=== PATIENT | male | born 1945 | race Caucasian/White ===

== ENCOUNTER 2017-05-23 10:16 | Inpatient (IN) | payer OTHER, MEDICARE ==
[~2017-05-23] VITALS: Ht 180.3 cm; Wt 108.4 kg
[2017-05-23 10:40] LABS: BASOPHILS % (AUTO) 1.8 % (0.0-5.0); EOSINOPHILS % (AUTO) 2.6 % (0.0-8.0); HEMATOCRIT 45.5 % (42-54); LYMPHOCYTES % (AUTO) 11.1 % (21.0-51.0); MEAN CORPUSCULAR HEMOGLOBIN 29.9 pg (27.0-33.0); MEAN CORPUSCULAR VOLUME 90.6 fL (79-99); MONOCYTES % (AUTO) 4.9 % (3.0-13.0); NEUTROPHILS % (AUTO) 79.6 % (40.0-77.0); PLATELET COUNT (AUTO) 348 K/uL (130-400); RED BLOOD CELL COUNT(AUTO) 5.02 MIL/uL (4.50-6.20); WHITE BLOOD COUNT (AUTO) 9.6 K/uL (4.8-10.8)
[2017-05-23 10:49] LABS: ALBUMIN 3.4 g/dL (3.5-5.0); BILIRUBIN,TOTAL 0.5 mg/dL (0.2-1.0); CREATININE 0.9 mg/dL (0.5-1.5); POTASSIUM 4.5 mmol/L (3.5-5.1); TOTAL PROTEIN, SERUM 7.5 g/dL (6.0-8.3)
[2017-05-23] MEDS ORDERED: SODIUM CHLORIDE 0.9% 1000ML 1,000 ML IV ONE (11:41)
[2017-05-23] MEDS ORDERED: CEFAZOLIN SODIUM 1 GM VIAL ONE (11:42)
[2017-05-23] MEDS ORDERED: INSULIN HUMULIN R 100 UNIT/ML 3ML ONE (11:43)
[2017-05-23 11:50] LABS: ERYTHROCYTE SEDIMENTATION RATE 33 MM/HR (0-15)
[2017-05-23] MEDS: SODIUM CHLORIDE 0.9% 1000ML 1,000 ML IV SCH (13:35)
[2017-05-23] MEDS ORDERED: POTASSIUM CHLORIDE 20MEQ/100ML 100 ML IV PRN (13:45)
[2017-05-23] MEDS ORDERED: NITROGLYCERIN 0.4 MG SL TAB SL PRN (13:45)
[2017-05-23] MEDS ORDERED: ACETAMINOPHEN 325 MG TAB PO PRN ×2 (13:45)
[2017-05-23] MEDS ORDERED: MORPHINE SULFATE 2 MG/ML 1ML SYG IV PRN (13:45)
[2017-05-23] MEDS ORDERED: GUAIFENESIN-DM 200/20 MG 10 ML PO PRN (13:45)
[2017-05-23] MEDS ORDERED: VANCOMYCIN 1GM+NS 250ML 250 ML IV SCH (13:45)
[2017-05-23] MEDS ORDERED: POTASSIUM CHLORIDE 20 MEQ ERTAB PO PRN (13:45)
[2017-05-23] MEDS ORDERED: MORPHINE SULFATE 4 MG/1ML SYG IV PRN (13:45)
[2017-05-23] MEDS ORDERED: CEFTRIAXONE 1GM/D5W 50ML 50 ML IV SCH (13:45)
[2017-05-23] MEDS ORDERED: LIDOCAINE HCL-MPF 1% 2ML VIAL IVP PRN (13:45)
[2017-05-23] MEDS ORDERED: ACETAMINOPHEN-CODEINE 300/30MG TAB PO PRN (13:45)
[2017-05-23] MEDS ORDERED: VANCOMYCIN PROTOCOL PER PHARMACY IV PRN (13:45)
[2017-05-23] MEDS ORDERED: ONDANSETRON HCL 4 MG/2 ML VIAL IV PRN (13:45)
[2017-05-23] MEDS ORDERED: POTASSIUM CHLORIDE 10% ELIXIR 20 MEQ/15 ML UDCUP PO PRN (13:45)
[2017-05-23] MEDS ORDERED: FAMOTIDINE 20MG TAB 20 MG TAB ONE (13:48)
[2017-05-23] MEDS ORDERED: VANCOMYCIN 1GM+NS 250ML 250 ML IV ONE (13:48)
[2017-05-23 16:29] VITALS: BP 157/97
[2017-05-23] MEDS ORDERED: COMPOUND IV REFRIGERATED 1 EACH IVSOLN MISC PRN (16:45)
[2017-05-23] MEDS: CEFTRIAXONE SODIUM 1 GM IVP SCH (17:21)
[2017-05-23] MEDS: WATER FOR INJECTION,STERILE 5 ML VIAL INJ SCH (17:21)
[2017-05-23] MEDS: HYDRALAZINE HCL 20 MG/ML VIAL IV PRN (17:22)
[2017-05-23] MEDS: INSULIN HUMULIN R 100 UNIT/ML 3ML SQ SCH ×2 (17:23→22:57)
[2017-05-23 19:00] VITALS: BP 145/88
[2017-05-23] MEDS: ACETAMINOPHEN-CODEINE 300/30MG TAB PO PRN (20:04)
[2017-05-23] MEDS ORDERED: PNEUMOCOCCAL VACCINE POLYVALENT 0.5 ML/VIAL [PPV] IM SCH (20:15)
[2017-05-23] MEDS: FAMOTIDINE 20MG TAB 20 MG TAB PO SCH (21:51)
[2017-05-23] MEDS: DEXTROSE 5% IV SCH (21:56)
[2017-05-23] MEDS: VANCOMYCIN IV SCH (21:56)
[2017-05-23] MEDS: WATER IV SCH (21:56)
[2017-05-23] MEDS ORDERED: DEXTROSE 50%-WATER 50 ML DISP.SYRIN IV PRN (22:00)
[2017-05-23] MEDS ORDERED: GLUCAGON 1MG KIT 1 MG ML IM PRN (22:00)
[2017-05-23 23:00] VITALS: BP 160/95
[2017-05-24] VITALS (7 sets, daily range): BP systolic 140–176; BP diastolic 80–104
[2017-05-24] MEDS: SODIUM CHLORIDE 0.9% 1000ML 1,000 ML IV SCH (00:18)
[2017-05-24 05:48] LABS: HEMOGLOBIN A1C 8.1 % (4.0-6.0)
[2017-05-24 06:00] LABS: CREATININE 0.8 mg/dL (0.5-1.5); POTASSIUM 4.3 mmol/L (3.5-5.1); THYROID STIMULATING HORMONE 2.01 uIU/mL (0.36-3.74)
[2017-05-24] MEDS: INSULIN HUMULIN R 100 UNIT/ML 3ML SQ SCH ×4 (07:01→22:35)
[2017-05-24] MEDS ORDERED: INSULIN DETEMIR 10ML 100 UNIT/ML 10ML SQ SCH (07:30)
[2017-05-24] MEDS ORDERED: OLME20TA10 PO (08:05)
[2017-05-24] MEDS ORDERED: METF-527 PO (08:05)
[2017-05-24] MEDS ORDERED: ROSU20TA PO (08:05)
[2017-05-24] MEDS ORDERED: ASPI-1012 PO (08:05)
[2017-05-24] MEDS ORDERED: METO-409 PO (08:05)
[2017-05-24] MEDS ORDERED: CITA40TA6 PO (08:05)
[2017-05-24] MEDS ORDERED: GLIM4TAB3 PO (08:05)
[2017-05-24] MEDS ORDERED: ESOM40CA PO (08:05)
[2017-05-24] MEDS: VANCOMYCIN IV SCH ×2 (08:14→20:34)
[2017-05-24] MEDS: DEXTROSE 5% IV SCH ×2 (08:14→20:34)
[2017-05-24] MEDS: WATER IV SCH ×2 (08:14→20:34)
[2017-05-24] MEDS: FAMOTIDINE 20MG TAB 20 MG TAB PO SCH ×2 (08:16→20:33)
[2017-05-24] MEDS: HYDRALAZINE HCL 20 MG/ML VIAL IV PRN (11:33)
[2017-05-24] MEDS: CEFTRIAXONE SODIUM 1 GM IVP SCH (15:57)
[2017-05-24] MEDS: WATER FOR INJECTION,STERILE 5 ML VIAL INJ SCH (15:58)
[2017-05-24] MEDS: LACTULOSE 20 GM/30 ML UDCUP PO PRN (15:58)
[2017-05-24] MEDS: GLIMEPIRIDE 2 MG TABLET PO SCH (20:33)
[2017-05-24] MEDS: METFORMIN HCL 500 MG TAB.SR.24H PO SCH (20:33)
[2017-05-24] MEDS: LOSARTAN 100 MG TABLET PO SCH (20:33)
[2017-05-24] MEDS: ATORVASTATIN CALCIUM 40 MG TABLET PO SCH (20:33)
[2017-05-24] MEDS: METOPROLOL TARTRATE 50 MG TAB PO SCH (20:33)
[2017-05-25] VITALS (7 sets, daily range): BP systolic 120–166; BP diastolic 61–101
[2017-05-25] MEDS: HYDRALAZINE HCL 20 MG/ML VIAL IV PRN (04:07)
[2017-05-25] MEDS: ACETAMINOPHEN-CODEINE 300/30MG TAB PO PRN ×3 (04:10→22:50)
[2017-05-25] MEDS: INSULIN HUMULIN R 100 UNIT/ML 3ML SQ SCH ×4 (05:56→21:38)
[2017-05-25] MEDS ORDERED: INSULIN GLARGINE 100 UNITS/ML 10 ML VIAL SQ ONE (06:31)
[2017-05-25] MEDS: INSULIN GLARGINE 100 UNITS/ML 10 ML VIAL SQ SCH (06:37)
[2017-05-25] MEDS: ASPIRIN 325 MG TABLET PO SCH (09:06)
[2017-05-25] MEDS: FAMOTIDINE 20MG TAB 20 MG TAB PO SCH ×2 (09:07→19:45)
[2017-05-25] MEDS: CITALOPRAM 20 MG TABLET PO SCH (09:07)
[2017-05-25] MEDS: METFORMIN HCL 500 MG TAB.SR.24H PO SCH ×2 (09:07→19:44)
[2017-05-25] MEDS: METOPROLOL TARTRATE 50 MG TAB PO SCH ×2 (09:07→19:45)
[2017-05-25] MEDS: GLIMEPIRIDE 2 MG TABLET PO SCH ×2 (09:07→19:44)
[2017-05-25] MEDS: VANCOMYCIN IV SCH ×2 (10:36→19:44)
[2017-05-25] MEDS: DEXTROSE 5% IV SCH ×2 (10:36→19:44)
[2017-05-25] MEDS: WATER IV SCH ×2 (10:36→19:44)
[2017-05-25] MEDS: CEFTRIAXONE SODIUM 1 GM IVP SCH (17:09)
[2017-05-25] MEDS: WATER FOR INJECTION,STERILE 5 ML VIAL INJ SCH (17:19)
[2017-05-25] MEDS: ATORVASTATIN CALCIUM 40 MG TABLET PO SCH (19:44)
[2017-05-25] MEDS: LOSARTAN 100 MG TABLET PO SCH (19:45)
[2017-05-26 03:10] VITALS: BP 128/78
[2017-05-26 06:22] LABS: HEMATOCRIT 41.4 % (42-54); MEAN CORPUSCULAR HEMOGLOBIN 30.3 pg (27.0-33.0); MEAN CORPUSCULAR VOLUME 89.2 fL (79-99); PLATELET COUNT (AUTO) 326 K/uL (130-400); RED BLOOD CELL COUNT(AUTO) 4.64 MIL/uL (4.50-6.20); RED CELL DISTRIBUTION WIDTH 13.9 % (11.0-15.5); WHITE BLOOD COUNT (AUTO) 8.3 K/uL (4.8-10.8)
[2017-05-26 06:27] LABS: CREATININE 0.7 mg/dL (0.5-1.5); POTASSIUM 4.2 mmol/L (3.5-5.1)
[2017-05-26] MEDS: INSULIN HUMULIN R 100 UNIT/ML 3ML SQ SCH ×4 (06:33→19:45)
[2017-05-26] MEDS ORDERED: INSULIN GLARGINE 100 UNITS/ML 10 ML VIAL SQ ONE (06:36)
[2017-05-26] MEDS: INSULIN GLARGINE 100 UNITS/ML 10 ML VIAL SQ SCH (06:38)
[2017-05-26 08:00] VITALS: BP 155/75
[2017-05-26] MEDS: METOPROLOL TARTRATE 50 MG TAB PO SCH ×2 (08:34→19:36)
[2017-05-26] MEDS: CITALOPRAM 20 MG TABLET PO SCH (08:35)
[2017-05-26] MEDS: METFORMIN HCL 500 MG TAB.SR.24H PO SCH ×2 (08:35→19:37)
[2017-05-26] MEDS: GLIMEPIRIDE 2 MG TABLET PO SCH ×2 (08:35→19:36)
[2017-05-26] MEDS: FAMOTIDINE 20MG TAB 20 MG TAB PO SCH ×2 (08:35→19:36)
[2017-05-26] MEDS: ACETAMINOPHEN-CODEINE 300/30MG TAB PO PRN ×2 (08:37→19:40)
[2017-05-26] MEDS: ASPIRIN 325 MG TABLET PO SCH (08:38)
[2017-05-26] MEDS: ENOXAPARIN SODIUM 40 MG/0.4 ML SYRINGE SQ SCH (08:38)
[2017-05-26 11:00] VITALS: BP 158/92
[2017-05-26] MEDS: WATER IV SCH ×2 (12:20→21:19)
[2017-05-26] MEDS: DEXTROSE 5% IV SCH ×2 (12:20→21:19)
[2017-05-26] MEDS: VANCOMYCIN IV SCH ×2 (12:20→21:19)
[2017-05-26 16:00] VITALS: BP 154/90
[2017-05-26] MEDS: CEFTRIAXONE SODIUM 1 GM IVP SCH (18:28)
[2017-05-26] MEDS: WATER FOR INJECTION,STERILE 5 ML VIAL INJ SCH (18:28)
[2017-05-26 19:00] VITALS: BP 141/83
[2017-05-26] MEDS: LOSARTAN 100 MG TABLET PO SCH (19:36)
[2017-05-26] MEDS: ATORVASTATIN CALCIUM 40 MG TABLET PO SCH (19:36)
[2017-05-26 23:00] VITALS: BP_SYST 165; BP_SYST 173; BP_DIAS 105; BP_DIAS 99
[2017-05-26] MEDS: HYDRALAZINE HCL 20 MG/ML VIAL IV PRN (23:58)
[2017-05-27] VITALS (25 sets, daily range): BP systolic 68–187; BP diastolic 33–102
[2017-05-27 04:05] LABS: HEMATOCRIT 45.8 % (42-54); MEAN CORPUSCULAR HGB CONC 32.8 g/dL (32.0-36.0); MEAN CORPUSCULAR VOLUME 91.4 fL (79-99); NUCLEATED RED BLOOD CELLS 0.1 % (0.0-0.19); PLATELET COUNT (AUTO) 403 K/uL (130-400); RED BLOOD CELL COUNT(AUTO) 5.02 MIL/uL (4.50-6.20); RED CELL DISTRIBUTION WIDTH 13.6 % (11.0-15.5); WHITE BLOOD COUNT (AUTO) 8.9 K/uL (4.8-10.8)
[2017-05-27 04:15] LABS: POTASSIUM 4.3 mmol/L (3.5-5.1)
[2017-05-27] MEDS: INSULIN HUMULIN R 100 UNIT/ML 3ML SQ SCH ×4 (06:53→21:00)
[2017-05-27] MEDS: INSULIN GLARGINE 100 UNITS/ML 10 ML VIAL SQ SCH (06:53)
[2017-05-27] MEDS: METOPROLOL TARTRATE 50 MG TAB PO SCH ×2 (08:31→21:33)
[2017-05-27] MEDS: DEXTROSE 5% IV SCH ×2 (08:41→21:43)
[2017-05-27] MEDS: WATER IV SCH ×2 (08:41→21:43)
[2017-05-27] MEDS: VANCOMYCIN IV SCH ×2 (08:41→21:43)
[2017-05-27] MEDS: CITALOPRAM 20 MG TABLET PO SCH (09:00)
[2017-05-27] MEDS: GLIMEPIRIDE 2 MG TABLET PO SCH ×2 (09:00→21:33)
[2017-05-27] MEDS: ASPIRIN 325 MG TABLET PO SCH (09:00)
[2017-05-27] MEDS: FAMOTIDINE 20MG TAB 20 MG TAB PO SCH ×2 (09:00→21:33)
[2017-05-27] MEDS: ENOXAPARIN SODIUM 40 MG/0.4 ML SYRINGE SQ SCH (09:00)
[2017-05-27] MEDS: METFORMIN HCL 500 MG TAB.SR.24H PO SCH ×2 (09:00→21:33)
[2017-05-27] MEDS: SODIUM CHLORIDE 0.9% 1000ML 1,000 ML IV SCH ×3 (09:38→21:00)
[2017-05-27] MEDS ORDERED: VANCOMYCIN HCL 1 GM VIAL ONE (10:24)
[2017-05-27] MEDS ORDERED: DEXAMETHASONE SOD PHOSPHATE 10MG/ML 1ML VIAL ONE (13:33)
[2017-05-27] MEDS ORDERED: GLYCOPYRROLATE 0.2 MG/ML 5 ML VIAL ONE (13:33)
[2017-05-27] MEDS ORDERED: ONDANSETRON HCL 4 MG/2 ML VIAL ONE (13:33)
[2017-05-27] MEDS ORDERED: LIDOCAINE PF 2% 5ML ABBOJECT ONE (13:33)
[2017-05-27] MEDS ORDERED: PROPOFOL 10 MG/ML 20ML VIAL IV ONE (13:34)
[2017-05-27] MEDS ORDERED: MIDAZOLAM HCL 1 MG/ML 2ML VIAL ONE (13:34)
[2017-05-27] MEDS ORDERED: FENTANYL CITRATE PF 50 MCG/1 ML 2ML VIAL ONE (13:34)
[2017-05-27] MEDS ORDERED: DIPHENHYDRAMINE HCL 25 MG CAPSULE PO PRN (15:00)
[2017-05-27] MEDS ORDERED: POTASSIUM CHLORIDE 20MEQ/100ML 100 ML IV PRN (15:00)
[2017-05-27] MEDS ORDERED: DiphenhydrAMINE HCL 50 MG/ML VIAL IVP PRN (15:00)
[2017-05-27] MEDS: CEFTRIAXONE SODIUM 1 GM IVP SCH (17:05)
[2017-05-27] MEDS: WATER FOR INJECTION,STERILE 5 ML VIAL INJ SCH (17:06)
[2017-05-27] MEDS: ACETAMINOPHEN-CODEINE 300/30MG TAB PO PRN (17:55)
[2017-05-27] MEDS: HYDRALAZINE HCL 20 MG/ML VIAL IV PRN (17:59)
[2017-05-27] MEDS: LOSARTAN 100 MG TABLET PO SCH (21:33)
[2017-05-27] MEDS: ATORVASTATIN CALCIUM 40 MG TABLET PO SCH (21:33)
[2017-05-27] MEDS: MAG HYDROX/AL HYDROX/SIMETH ES 30 ML SUSP UDCUP PO PRN (21:33)
[2017-05-28] VITALS: BP 140/81
[2017-05-28] MEDS: SODIUM CHLORIDE 0.9% 1000ML 1,000 ML IV SCH ×3 (00:46→10:46)
[2017-05-28 03:53] VITALS: BP 134/75
[2017-05-28 04:15] LABS: HEMATOCRIT 40.7 % (42-54); MEAN CORPUSCULAR HEMOGLOBIN 30.3 pg (27.0-33.0); MEAN CORPUSCULAR HGB CONC 33.8 g/dL (32.0-36.0); MEAN CORPUSCULAR VOLUME 89.8 fL (79-99); PLATELET COUNT (AUTO) 342 K/uL (130-400); RED BLOOD CELL COUNT(AUTO) 4.54 MIL/uL (4.50-6.20); RED CELL DISTRIBUTION WIDTH 13.4 % (11.0-15.5); WHITE BLOOD COUNT (AUTO) 8.4 K/uL (4.8-10.8)
[2017-05-28 04:29] LABS: CREATININE 0.8 mg/dL (0.5-1.5); POTASSIUM 4.4 mmol/L (3.5-5.1)
[2017-05-28] MEDS: INSULIN GLARGINE 100 UNITS/ML 10 ML VIAL SQ SCH (07:03)
[2017-05-28] MEDS: INSULIN HUMULIN R 100 UNIT/ML 3ML SQ SCH ×4 (07:04→22:15)
[2017-05-28 08:00] VITALS: BP 121/76
[2017-05-28] MEDS: METOPROLOL TARTRATE 50 MG TAB PO SCH ×2 (08:41→21:57)
[2017-05-28] MEDS: ASPIRIN 325 MG TABLET PO SCH (08:41)
[2017-05-28] MEDS: FAMOTIDINE 20MG TAB 20 MG TAB PO SCH ×2 (08:41→21:56)
[2017-05-28] MEDS: CITALOPRAM 20 MG TABLET PO SCH (08:42)
[2017-05-28] MEDS: METFORMIN HCL 500 MG TAB.SR.24H PO SCH ×2 (08:42→21:57)
[2017-05-28] MEDS: GLIMEPIRIDE 2 MG TABLET PO SCH ×2 (08:42→21:57)
[2017-05-28] MEDS: VANCOMYCIN IV SCH ×2 (08:51→22:08)
[2017-05-28] MEDS: WATER IV SCH ×2 (08:51→22:08)
[2017-05-28] MEDS: DEXTROSE 5% IV SCH ×2 (08:51→22:08)
[2017-05-28 12:08] VITALS: BP 156/90
[2017-05-28 16:00] VITALS: BP 135/95
[2017-05-28] MEDS: CEFTRIAXONE SODIUM 1 GM IVP SCH (16:47)
[2017-05-28] MEDS: WATER FOR INJECTION,STERILE 5 ML VIAL INJ SCH (16:48)
[2017-05-28] MEDS: LACTULOSE 20 GM/30 ML UDCUP PO PRN (18:31)
[2017-05-28 20:00] VITALS: BP 157/90
[2017-05-28] MEDS: MAG HYDROX/AL HYDROX/SIMETH ES 30 ML SUSP UDCUP PO PRN (21:55)
[2017-05-28] MEDS: LOSARTAN 100 MG TABLET PO SCH (21:56)
[2017-05-28] MEDS: ATORVASTATIN CALCIUM 40 MG TABLET PO SCH (21:56)
[2017-05-29] VITALS: BP 171/94
[2017-05-29 04:00] VITALS: BP 150/83
[2017-05-29 04:32] LABS: HEMATOCRIT 40.1 % (42-54); MEAN CORPUSCULAR HEMOGLOBIN 30.5 pg (27.0-33.0); MEAN CORPUSCULAR VOLUME 89.6 fL (79-99); PLATELET COUNT (AUTO) 342 K/uL (130-400); RED BLOOD CELL COUNT(AUTO) 4.47 MIL/uL (4.50-6.20); RED CELL DISTRIBUTION WIDTH 13.5 % (11.0-15.5); WHITE BLOOD COUNT (AUTO) 7.5 K/uL (4.8-10.8)
[2017-05-29] MEDS: INSULIN HUMULIN R 100 UNIT/ML 3ML SQ SCH ×4 (06:10→21:42)
[2017-05-29] MEDS: INSULIN GLARGINE 100 UNITS/ML 10 ML VIAL SQ SCH (06:16)
[2017-05-29 07:30] VITALS: BP 171/97
[2017-05-29] MEDS: METFORMIN HCL 500 MG TAB.SR.24H PO SCH ×2 (09:50→21:33)
[2017-05-29] MEDS: METOPROLOL TARTRATE 50 MG TAB PO SCH ×2 (09:51→21:34)
[2017-05-29] MEDS: CITALOPRAM 20 MG TABLET PO SCH (09:51)
[2017-05-29] MEDS: GLIMEPIRIDE 2 MG TABLET PO SCH ×2 (09:51→21:34)
[2017-05-29] MEDS: ASPIRIN 325 MG TABLET PO SCH (09:51)
[2017-05-29] MEDS: FAMOTIDINE 20MG TAB 20 MG TAB PO SCH ×2 (09:51→21:34)
[2017-05-29] MEDS: LACTULOSE 20 GM/30 ML UDCUP PO PRN (09:57)
[2017-05-29] MEDS ORDERED: AMOX-429 PO (09:58)
[2017-05-29] MEDS: VANCOMYCIN IV SCH ×2 (10:37→21:33)
[2017-05-29] MEDS: DEXTROSE 5% IV SCH ×2 (10:37→21:33)
[2017-05-29] MEDS: WATER IV SCH ×2 (10:37→21:33)
[2017-05-29 11:00] VITALS: BP 144/85
[2017-05-29 16:00] VITALS: BP 154/98
[2017-05-29] MEDS: CEFTRIAXONE SODIUM 1 GM IVP SCH (17:42)
[2017-05-29] MEDS: WATER FOR INJECTION,STERILE 5 ML VIAL INJ SCH (17:44)
[2017-05-29 19:30] VITALS: BP 137/85
[2017-05-29] MEDS: LOSARTAN 100 MG TABLET PO SCH (21:34)
[2017-05-29] MEDS: ATORVASTATIN CALCIUM 40 MG TABLET PO SCH (21:34)
[2017-05-30 00:16] VITALS: BP 160/98
[2017-05-30 04:00] VITALS: BP 133/77
[2017-05-30] MEDS: INSULIN HUMULIN R 100 UNIT/ML 3ML SQ SCH ×2 (06:40→11:21)
[2017-05-30] MEDS: INSULIN GLARGINE 100 UNITS/ML 10 ML VIAL SQ SCH (06:46)
[2017-05-30 07:00] VITALS: BP 143/95
[2017-05-30] MEDS ORDERED: DOXY100T2 PO (09:14)
[2017-05-30] MEDS: ASPIRIN 325 MG TABLET PO SCH (09:55)
[2017-05-30] MEDS: CITALOPRAM 20 MG TABLET PO SCH (09:55)
[2017-05-30] MEDS: FAMOTIDINE 20MG TAB 20 MG TAB PO SCH (09:55)
[2017-05-30] MEDS: METFORMIN HCL 500 MG TAB.SR.24H PO SCH (09:55)
[2017-05-30] MEDS: METOPROLOL TARTRATE 50 MG TAB PO SCH (09:55)
[2017-05-30] MEDS: GLIMEPIRIDE 2 MG TABLET PO SCH (09:56)
[2017-05-30] MEDS: VANCOMYCIN IV SCH (09:57)
[2017-05-30] MEDS: DEXTROSE 5% IV SCH (09:57)
[2017-05-30] MEDS: WATER IV SCH (09:57)
[2017-05-30 11:00] VITALS: BP 167/96
== END 2017-05-30 12:30 | disposition home or self-care (01) | DRG 571 ==
LOC: EDH 10:16 → OBSVTOIN 12:44 → EDHIP 12:44 → 3BH 16:18
PROVIDERS: ADMIT Internal Medicine; ATTEND Internal Medicine
PROC: 0J9P0ZZ Drainage of Left Lower Leg Subcutaneous Tissue and Fascia, Open Approach (ICD-10-PCS; 2017-05-27)
PROC: 0JBP0ZZ Excision of Left Lower Leg Subcutaneous Tissue and Fascia, Open Approach (ICD-10-PCS; principal; 2017-05-27 14:16)
DX: L03.116 Cellulitis of left lower limb (principal); E87.1 Hypo-osmolality and hyponatremia; E11.65 Type 2 diabetes mellitus with hyperglycemia; I25.10 Atherosclerotic heart disease of native coronary artery without angina pectoris; E78.5 Hyperlipidemia, unspecified; I10 Essential (primary) hypertension; Z95.5 Presence of coronary angioplasty implant and graft; Z90.49 Acquired absence of other specified parts of digestive tract; Z82.49 Family history of ischemic heart disease and other diseases of the circulatory system
CPT/HCPCS: 36415; 71010; 73560; 80048; 80053; 80202; 82948; 83036; 84443; 85025; 85027; 85651; 87070; 87076; 87205; 93005; J0360; J0690; J0696; J1100; J1650; J1815; J2001; J2250; J2405; J2704; J3010; J3370; J3490; J7030; J7060

== ENCOUNTER 2021-09-08 11:14 | Inpatient (IN) | payer MEDICARE, OTHER ==
[~2021-09-08] VITALS: Ht 180.3 cm; Wt 92.7 kg
[~2021-09-08 11:14] MED LIST: AMOX-429 PO; ASPI-1012 PO; CITA-108 PO; DOXY100T2 PO; ESOM40CA PO; GLIM4TAB36 PO; METF-527 PO; METO-409 PO; OLME20TA10 PO; ROSU20TA23 PO
[2021-09-08 11:30] LABS: BASOPHILS % (AUTO) 0.3 % (0.0-5.0); EOSINOPHILS % (AUTO) 1.7 % (0.0-8.0); HEMATOCRIT 42.2 % (42-54); LYMPHOCYTES % (AUTO) 12.3 % (21.0-51.0); MEAN CORPUSCULAR HEMOGLOBIN 26.8 pg (27.0-33.0); MEAN CORPUSCULAR HGB CONC 31.3 g/dL (32.0-36.0); MEAN CORPUSCULAR VOLUME 85.6 fL (79-99); MONOCYTES % (AUTO) 6.1 % (3.0-13.0); NEUTROPHILS % (AUTO) 79.2 % (40.0-77.0); PLATELET COUNT (AUTO) 297 K/uL (130-400); RED BLOOD CELL COUNT(AUTO) 4.93 MIL/uL (4.50-6.20); RED CELL DISTRIBUTION WIDTH 14.6 % (11.0-15.5)
[2021-09-08 11:41] LABS: INR 1.09 (0.85-1.15); PROTHROMBIN TIME 11.8 SEC (9.6-11.6)
[2021-09-08 11:43] LABS: CREATININE 0.9 mg/dL (0.5-1.5); POTASSIUM 4.2 mmol/L (3.5-5.1)
[2021-09-08 11:47] LABS: ALBUMIN 3.5 g/dL (3.5-5.0); BILIRUBIN,TOTAL 0.4 mg/dL (0.2-1.0); TOTAL PROTEIN, SERUM 7.5 g/dL (6.0-8.3)
[2021-09-08 12:14] LABS: APPEARANCE,URINE CLEAR (CLEAR); BILIRUBIN,URINE NEGATIVE (NEGATIVE); COLOR,URINE STRAW (YELLOW); GLUCOSE, URINE (UA) NEGATIVE (NEGATIVE); KETONES,URINE NEGATIVE (NEGATIVE); LEUKOCYTE ESTERASE ,URINE NEGATIVE (NEGATIVE); NITRATE,URINE NEGATIVE (NEGATIVE); OCCULT BLOOD,URINE NEGATIVE (NEGATIVE); PROTEIN,URINE TRACE mg/dL (NEGATIVE); UROBILINOGEN,URINE 0.2 mg/dL (0.2-1.0)
[2021-09-08 12:22] LABS: BACTERIA,URINE None Seen /HPF (None Seen); MUCUS,URINE Rare LPF (None Seen); RBC,URINE 0-1 /HPF (0-1); SQUAMOUS EPITHELIAL CELL,UR 0-2 /HPF (0-2); WBC,URINE 0-1 /HPF (0-1)
[2021-09-08] MEDS ORDERED: 0.9%NACL 50ML 50 ML IV ONE ×3 (12:48→22:33)
[2021-09-08] MEDS ORDERED: 0.9%NACL 1000ML 1,000 ML IV ONE (13:00)
[2021-09-08] MEDS ORDERED: CEFTRIAXONE 1G VIAL IVP ONE (13:00)
[2021-09-08] MEDS ORDERED: AZITHROMYCIN 250 MG TABLET PO ONE (13:00)
[2021-09-08 13:57] LABS: CRP QUANTITATIVE 11.5 mg/L (0.00-9.0); MAGNESIUM 1.8 mg/dL (1.80-2.40)
[2021-09-08] MEDS ORDERED: CARB1CAP5 PO (14:29)
[2021-09-08] MEDS ORDERED: THIAMINE HCL 100 MG/ML 2ML VIAL IVP SCH (14:30)
[2021-09-08] MEDS ORDERED: LACTATED RINGERS 1000ML 1,000 ML IV SCH (14:30)
[2021-09-08] MEDS ORDERED: Vitamin B Complex/Vit C/Folic Acid PO ONE (14:30)
[2021-09-08] MEDS ORDERED: ALBUTEROL 0.083% 2.5 MG/3 ML INH IH PRN (15:00)
[2021-09-08] MEDS ORDERED: MAGNESIUM 2GM PREMIX 50ML 50 ML IV SCH (15:00)
[2021-09-08] MEDS ORDERED: SODIUM CHLORIDE 3% FOR INHALATION 4 ML/AMP VIAL.NEB IH ONE (15:16)
[2021-09-08] MEDS: LEVODOPA PO SCH ×2 (15:32→19:40)
[2021-09-08] MEDS: ZOSYN 3.375GM +NS 50ML IV SCH ×2 (15:32→23:14)
[2021-09-08] MEDS: CARBIDOPA PO SCH ×2 (15:32→19:40)
[2021-09-08] MEDS: BUDESONIDE 0.5 MG/2 ML INH IH SCH (18:33)
[2021-09-08] MEDS ORDERED: 0.9% NACL 250ML 250 ML ONE (19:37)
[2021-09-08] MEDS: DOXYCYCLINE 100MG+NS 250ML IV SCH (19:40)
[2021-09-08] MEDS ORDERED: POLYETHYLENE GLYCOL 3350 17 GM POWD.PACK PO ONE (20:00)
[2021-09-08] MEDS: DOCUSATE SODIUM 100 MG CAP PO SCH (21:00)
[2021-09-08] MEDS ORDERED: POLYETHYLENE GLYCOL 3350 17 GM POWD.PACK ONE (21:29)
[2021-09-08 22:18] VITALS: BP 143/74
[2021-09-08 23:24] VITALS: BP 163/71
[2021-09-09] VITALS (7 sets, daily range): BP systolic 87–151; BP diastolic 41–73
[2021-09-09] MEDS: GLUCAGON 1MG KIT 1 MG ML IM SCH ×2 (01:22→19:44)
[2021-09-09] MEDS ORDERED: DEXTROSE 5%-WATER 1,000 ML IV SCH (01:30)
[2021-09-09 04:58] LABS: BASOPHILS % (AUTO) 0.4 % (0.0-5.0); EOSINOPHILS % (AUTO) 2.9 % (0.0-8.0); HEMATOCRIT 39.9 % (42-54); LYMPHOCYTES % (AUTO) 13.7 % (21.0-51.0); MEAN CORPUSCULAR HEMOGLOBIN 27.4 pg (27.0-33.0); MEAN CORPUSCULAR HGB CONC 32.1 g/dL (32.0-36.0); MEAN CORPUSCULAR VOLUME 85.3 fL (79-99); MONOCYTES % (AUTO) 6.3 % (3.0-13.0); NEUTROPHILS % (AUTO) 76.3 % (40.0-77.0); PLATELET COUNT (AUTO) 282 K/uL (130-400); RED BLOOD CELL COUNT(AUTO) 4.68 MIL/uL (4.50-6.20); RED CELL DISTRIBUTION WIDTH 14.7 % (11.0-15.5); WHITE BLOOD COUNT (AUTO) 11.2 K/uL (4.8-10.8)
[2021-09-09 05:12] LABS: ALBUMIN 2.9 g/dL (3.5-5.0); BILIRUBIN,TOTAL 0.5 mg/dL (0.2-1.0); CREATININE 0.8 mg/dL (0.5-1.5); MAGNESIUM 1.5 mg/dL (1.80-2.40); TOTAL PROTEIN, SERUM 6.3 g/dL (6.0-8.3)
[2021-09-09 05:29] LABS: B-TYPE NATRIURETIC PEPTIDE 226 pg/mL (0-100)
[2021-09-09] MEDS ORDERED: INSU100V12 SQ (05:32)
[2021-09-09] MEDS ORDERED: 0.9%NACL 50ML 50 ML IV ONE ×2 (05:37→13:01)
[2021-09-09] MEDS: ZOSYN 3.375GM +NS 50ML IV SCH ×3 (06:03→21:28)
[2021-09-09] MEDS: DEXTROSE 5 % AND 0.9 % NACL 1,000 ML IV SCH (06:17)
[2021-09-09] MEDS: BUDESONIDE 0.5 MG/2 ML INH IH SCH ×2 (06:19→18:00)
[2021-09-09 07:07] LABS: HEMOGLOBIN A1C 7.2 % (4.0-6.0)
[2021-09-09] MEDS ORDERED: Vitamin B Complex/Vit C/Folic Acid ONE (07:23)
[2021-09-09] MEDS: DOXYCYCLINE 100MG+NS 250ML IV SCH ×2 (07:32→21:27)
[2021-09-09] MEDS: DOCUSATE SODIUM 100 MG CAP PO SCH ×3 (07:32→21:27)
[2021-09-09] MEDS: Vitamin B Complex/Vit C/Folic Acid PO SCH (08:07)
[2021-09-09] MEDS: ASPIRIN 81 MG EC TAB PO SCH (08:27)
[2021-09-09] MEDS: CARBIDOPA PO SCH ×2 (09:00→15:01)
[2021-09-09] MEDS: LEVODOPA PO SCH ×2 (09:00→15:01)
[2021-09-09] MEDS ORDERED: Vitamin B Complex/Vit C/Folic Acid PO SCH (09:00)
[2021-09-09] MEDS ORDERED: OLME40TA18 PO (11:49)
[2021-09-09] MEDS ORDERED: ROSU20TA31 PO (11:49)
[2021-09-09] MEDS ORDERED: CLOP75TA32 PO (11:49)
[2021-09-09] MEDS ORDERED: METO-409 PO (11:49)
[2021-09-09] MEDS ORDERED: AMAN100C14 PO (11:49)
[2021-09-09] MEDS ORDERED: DULO60CA64 PO ×2 (11:49)
[2021-09-09] MEDS ORDERED: ESOM40CA54 PO (11:54)
[2021-09-09] MEDS ORDERED: DOCU-116 PO (11:54)
[2021-09-09] MEDS ORDERED: METF-446 PO (11:54)
[2021-09-09] MEDS ORDERED: CARB1TAB42 PO (11:54)
[2021-09-09] MEDS ORDERED: ISOS30TA92 PO (11:54)
[2021-09-09] MEDS ORDERED: CARBIDOPA/LEVODOPA ER 50-200 1 EACH TABLET.ER PO SCH (17:00)
[2021-09-09] MEDS: INSULIN HUMULIN R 100 UNIT/ML 3ML SQ SCH (20:16)
[2021-09-09] MEDS ORDERED: ATORVASTATIN 40 MG TABLET PO SCH (21:00)
[2021-09-09] MEDS: AMANTADINE 100 MG CAPSULE PO SCH (21:27)
[2021-09-10] MEDS: DEXTROSE 5 % AND 0.9 % NACL 1,000 ML IV SCH (00:06)
[2021-09-10 03:12] VITALS: BP 148/76
[2021-09-10] MEDS: INSULIN HUMULIN R 100 UNIT/ML 3ML SQ SCH ×3 (06:00→16:30)
[2021-09-10] MEDS: ZOSYN 3.375GM +NS 50ML IV SCH ×2 (06:17→14:17)
[2021-09-10] MEDS: DOXYCYCLINE 100MG+NS 250ML IV SCH (07:48)
[2021-09-10] MEDS: Vitamin B Complex/Vit C/Folic Acid PO SCH (07:48)
[2021-09-10] MEDS: ASPIRIN 81 MG EC TAB PO SCH (07:49)
[2021-09-10] MEDS: DOCUSATE SODIUM 100 MG CAP PO SCH (07:49)
[2021-09-10 08:00] VITALS: BP 125/66
[2021-09-10] MEDS: CARBIDOPA/LEVODOPA ER 50-200 1 EACH TABLET.ER PO SCH ×3 (08:25→17:20)
[2021-09-10] MEDS: AMANTADINE 100 MG CAPSULE PO SCH (08:25)
[2021-09-10] MEDS ORDERED: ACETAMINOPHEN 325 MG TAB PO PRN (08:30)
[2021-09-10] MEDS ORDERED: CLOPIDOGREL 75MG TAB PO SCH (09:00)
[2021-09-10] MEDS ORDERED: DOCUSATE SODIUM 100 MG CAP PO SCH (09:00)
[2021-09-10] MEDS ORDERED: ISOSORBIDE MONO 30MG SR TAB PO SCH (09:00)
[2021-09-10] MEDS ORDERED: LOSARTAN 100 MG TABLET PO SCH (09:00)
[2021-09-10] MEDS ORDERED: DULOXETINE HCL 30 MG CAP PO SCH (09:00)
[2021-09-10] MEDS ORDERED: PANTOPRAZOLE 40 MG TAB DR PO SCH (09:00)
[2021-09-10 12:00] VITALS: BP 107/70
[2021-09-10] MEDS ORDERED: HYDROCODONE/ACETAMINOPHEN 5/325 MG TAB PO PRN (13:30)
[2021-09-10] MEDS ORDERED: 0.9%NACL 50ML 50 ML IV ONE (14:15)
[2021-09-10 15:55] VITALS: BP 112/62
[2021-09-10] MEDS ORDERED: LEVO750T46 PO (16:43)
[2021-09-10] MEDS ORDERED: INSU100V12 SQ (16:43)
== END 2021-09-10 19:53 | disposition hospice, home (50) | DRG 189 ==
LOC: EDH 11:14 → EDHIP 14:48 → 2AH 21:58
PROVIDERS: ADMIT Internal Medicine; ATTEND Internal Medicine
DX: J96.01 Acute respiratory failure with hypoxia (principal); E44.0 Moderate protein-calorie malnutrition; I13.0 Hypertensive heart and chronic kidney disease with heart failure and stage 1 through stage 4 chronic kidney disease, or unspecified chronic kidney disease; Z20.822 Contact with and (suspected) exposure to COVID-19; I25.10 Atherosclerotic heart disease of native coronary artery without angina pectoris; E78.5 Hyperlipidemia, unspecified; E86.0 Dehydration; E86.1 Hypovolemia; R54 Age-related physical debility; E11.22 Type 2 diabetes mellitus with diabetic chronic kidney disease; E03.9 Hypothyroidism, unspecified; I50.9 Heart failure, unspecified; Z86.73 Personal history of transient ischemic attack (TIA), and cerebral infarction without residual deficits; N18.9 Chronic kidney disease, unspecified; F02.80 Dementia in other diseases classified elsewhere, unspecified severity, without behavioral disturbance, psychotic disturbance, mood disturbance, and anxiety; G20 Parkinson's disease; K59.00 Constipation, unspecified; N28.89 Other specified disorders of kidney and ureter; Z82.3 Family history of stroke; Z68.28 Body mass index [BMI] 28.0-28.9, adult
CPT/HCPCS: 36415; 70450; 71045; 72125; 72170; 74176; 74230; 80053; 81001; 82550; 82728; 82948; 83036; 83615; 83735; 83880; 84100; 84145; 84443; 84484; 85025; 85610; 85651; 86140; 86738; 87071; 87077; 87186; 87205; 87449; 87635; 87804; 92610; 92611; 93005; 94640; 99291; C9803; G0378; J0696; J1610; J2543; J3411; J3475; J3490; J7030; J7042; J7050; J7070; J7120